=== PATIENT | male | born 1930 | race Caucasian/White ===

== ENCOUNTER 2016-04-28 08:11 | Outpatient (CLI) | payer MEDICARE, OTHER | END 2016-04-28 08:12 | disposition home or self-care (01) | DX: E78.5 Hyperlipidemia, unspecified (principal); N19 Unspecified kidney failure; I25.10 Atherosclerotic heart disease of native coronary artery without angina pectoris ==

== ENCOUNTER 2016-11-30 08:45 | Outpatient (CLI) | payer MEDICARE, OTHER ==
[2016-11-30 14:44] LABS: BUN - BLOOD UREA NITROGEN 21 mg/dL (6-20); CALCIUM 9.4 mg/dL (8.5-10.3); CARBON DIOXIDE - CO2 28 mmol/L (21-32); CHLORIDE 105 mmol/L (101-111); CHOL/HDL RATIO 3.3 (<5.0); CHOLESTEROL 147 mg/dL; CREATININE 1.6 mg/dL (0.6-1.2); GFR - MDRD 41 (>89); GLUCOSE 94 mg/dL (70-100); HDL CHOLESTEROL 44 mg/dL; LDL CHOLESTEROL,DIRECT 85 mg/dL; LDL/HDL RATIO 1.8 (<3.6); POTASSIUM 4.4 mmol/L (3.5-5.0); SODIUM 139 mmol/L (135-145); TRIGLYCERIDES 114 mg/dL; VLDL CHOLESTEROL 23 mg/dL
== END 2016-11-30 08:46 | disposition home or self-care (01) ==
LOC: LAB.WCP 08:45
PROVIDERS: ATTEND Internal Medicine Cardiovascular Disease
DX: I42.9 Cardiomyopathy, unspecified (principal); I10 Essential (primary) hypertension; E78.5 Hyperlipidemia, unspecified; I25.10 Atherosclerotic heart disease of native coronary artery without angina pectoris
CPT/HCPCS: 36415; 80048; 80061; 82550; 84450; 84460

== ENCOUNTER 2017-02-01 09:12 | Observation (INO) | payer MEDICARE, OTHER ==
--- NOTE | 2017-02-01 09:23 | ED Physician Documentation ---
History of Present Illness - Stated complaint Stated Complaint: WEAKNESS - Chief complaint Chief Complaint: General - Additonal information Additional information: hx from pt 86 male near syncope today pt states he had a flu shot 3 days ago generally weak since head cold and chest congestion started yesterday today had 4 min of dec LOC and diaphoresis - no generalized seizure activity noted and no incontinence was breathing pulse not check - known of fast slow present absent etc recovered spont called 911 pt feeling better now states he has a MAGANA - no fall or injury denies CP and palp - just chest congestion no abd pain NVD Review of Systems Constitutional: denies: Fever Cardiac: denies: Chest pain / pressure Respiratory: denies: Dyspnea GI: denies: Abdominal Pain, Nausea, Vomiting Neurologic: reports: Near syncope, Headache. denies: Head injury Endocrine: denies: Easy bruising / bleeding Immunocompromised: denies: Immunocompromised PD PAST MEDICAL HISTORY - Past Medical History Cardiovascular: Hypertension, High cholesterol, Coronary artery disease GI: Cholelithiasis : Kidney stones - Past Surgical History Past Surgical History: Yes General: Cholecystectomy, Colonoscopy Cardiovascular: CABG Neuro: Craniotomy - Present Medications Home Medications: Ambulatory Orders Medication Instructions Recorded Confirmed Atenolol 25 mg PO DAILY 08/01/12 02/01/17 Isosorbide Mononitrate [Imdur] 30 mg PO DAILY 08/01/12 02/01/17 Omeprazole [PriLOSEC] 20 mg PO QDAC 08/01/12 02/01/17 Nitroglycerin [Nitrostat] 0.4 mg SL Q5MIN PRN #0 tablet 11/13/12 02/01/17 Aspirin EC [Ecotrin] 325 mg PO DAILY 02/01/17 02/01/17 Lisinopril [Zestril] 5 mg PO DAILY 02/01/17 02/01/17 Rosuvastatin Calcium [Rosuvastatin 40 mg PO QPM 02/01/17 02/01/17 Calcium] - Allergies Allergies/Adverse Reactions: Allergies Allergy/AdvReac Type Severity Reaction Status Date / Time No Known Drug Allergies Allergy Verified 07/31/12 09:02 - Social History Does the pt smoke?: No Smoking Status: Never smoker Does the pt drink ETOH?: Yes Does the pt have substance abuse?: No PD ED PE NORMAL - Vitals Vital signs reviewed: Yes - General General: Alert and oriented X 3 - HEENT HEENT: PERRL - Neck Neck: Supple, no meningeal sign - Cardiac Cardiac: RRR - Respiratory Respiratory: No respiratory distress, Clear bilaterally - Abdomen Abdomen: Soft, Non tender - Derm Derm: Normal color - Neuro Neuro: Alert and oriented X 3 Eye Opening: Spontaneous Motor: Obeys Commands Verbal: Oriented GCS Score: 15 Results - Vitals Vitals: Vital Signs - 24 hr 02/01/17 02/01/17 02/01/17 09:18 09:26 11:33 Temperature 36.1 C L 36.1 C L Heart Rate 75 75 67 Respiratory 18 18 16 Rate Blood Pressure 143/68 H 143/68 H 127/70 O2 Saturation 97 97 97 02/01/17 12:27 Temperature Heart Rate 68 Respiratory 16 Rate Blood Pressure 114/70 O2 Saturation Oxygen O2 Source Room air - EKG (time done) 0932 Rate: Rate (enter#) Rhythm: NSR (66) [place]: Normal Intervals: 1st degree AVB, Prolonged QT (< 1/2 R-R) Ischemia: Non specific changes - Labs Labs: Laboratory Tests 02/01/17 02/01/17 02/01/17 09:40 09:40 09:40 WBC 10.9 H RBC 4.70 Hgb 14.5 Hct 42.5 MCV 90.5 MCH 30.9 MCHC 34.1 RDW 13.3 Plt Count 215 MPV 7.6 Neut # 7.4 H Lymph # 2.3 Gregg # 1.0 Eos # 0.1 Baso # 0.0 Absolute Nucleated RBC 0.00 Nucleated RBC % 0.0 Sodium 138 Potassium 4.2 Chloride 102 Carbon Dioxide 27 Anion Gap 9.0 BUN 23 H Creatinine 1.6 H Estimated GFR (MDRD) 41 L Glucose 114 H Calcium 9.3 Troponin I < 0.04 Urine Color Urine Clarity Urine pH Ur Specific [place] Urine Protein Urine Glucose (UA) Urine Ketones Urine Occult Blood Urine Nitrite Urine Bilirubin Urine Urobilinogen Ur Leukocyte Esterase Ur Microscopic Review Urine Culture Comments 02/01/17 11:00 WBC RBC Hgb Hct MCV MCH MCHC RDW Plt Count MPV Neut # Lymph # Gregg # Eos # Baso # Absolute Nucleated RBC Nucleated RBC % Sodium Potassium Chloride Carbon Dioxide Anion Gap BUN Creatinine Estimated GFR (MDRD) Glucose Calcium Troponin I Urine Color YELLOW Urine Clarity CLEAR Urine pH 6.0 Ur Specific [place] 1.025 Urine Protein NEGATIVE Urine Glucose (UA) NEGATIVE Urine Ketones NEGATIVE Urine Occult Blood NEGATIVE Urine Nitrite NEGATIVE Urine Bilirubin NEGATIVE Urine Urobilinogen 0.2 (NORMAL) Ur Leukocyte Esterase NEGATIVE Ur Microscopic Review NOT INDICATED Urine Culture Comments NOT INDICATED - Rads (name of study) CTH Radiology: See rad report (no ICH, mucocel or polyp in sinus similar to 2008) CXR Radiology: See rad report (bibasilar atelectasis) PD MEDICAL DECISION MAKING - ED course ED course: syncope vs seizure will admit to tele echo and if neg refer to neuro for further eval spoke to hospitalist at noon Departure - Departure Disposition: ED Place in Observation Clinical Impression: Prolonged QT interval, Renal insufficiency Syncope Qualifiers: Syncope type: unspecified Qualified Code(s): R55 - Syncope and collapse Condition: Good Discharge Date/Time: 02/01/17 13:17 NIHSS - Time Time: 09:15 - Level of Consciousness Level of consciousness: (0) Alert, Keenly responsive LOC Questions: (0) Answers both Q's correct LOC Commands: (0) Performs both correctly - Gaze Best Gaze: (0) Normal - Visual Visual: (0) No loss - Facial Palsy Facial Palsy: (0) Normal, symmetrical movement - Motor Arms (both separate) Motor Arm (right): (0) No drift Motor Arm (left): (0) No drift - Motor Legs (both separate) Motor Leg (right): (0) No drift Motor Leg (left): (0) No drift - Limb Ataxia Limb Ataxia: (0) Absent - Sensory Sensory: (0) Normal - Best Language Best Language: (0) No aphasia - Dysarthria Dysarthria: (0) Normal - Extinction and Inattention (formally neg Extinction and inattention: (0) No abnormality - Total Score/Results Total Score/Result: 0
[2017-02-01 09:45] LABS: BASOPHILS % (AUTO) 0.3 %; EOSINOPHILS # (AUTO) 0.1 10^3/uL (0.0-0.7); EOSINOPHILS % (AUTO) 1.3 %; HCT - HEMATOCRIT 42.5 % (42.0-52.0); HGB - HEMOGLOBIN 14.5 g/dL (14.0-18.0); LYMPHOCYTES # (AUTO) 2.3 10^3/uL (1.5-3.5); LYMPHOCYTES % (AUTO) 21.4 %; MEAN CORPUSCULAR HEMOGLOBIN 30.9 pg (27.0-31.0); MEAN CORPUSCULAR HGB CONC 34.1 g/dL (32.0-36.0); MEAN CORPUSCULAR VOLUME 90.5 fL (80.0-94.0); MEAN PLATELET VOLUME 7.6 fL (7.4-11.4); MONOCYTES % (AUTO) 9.4 %; NEUTROPHILS # (AUTO) 7.4 10^3/uL (1.5-6.6); NEUTROPHILS % (AUTO) 67.6 %; RED CELL DISTRIBUTION WIDTH 13.3 % (12.0-15.0); UNCORRECTED WHITE BLOOD COUNT 10.9 x10^3/uL; WHITE BLOOD COUNT 10.9 x10^3/uL (4.8-10.8)
[2017-02-01 09:56] LABS: CALCIUM 9.3 mg/dL (8.5-10.3); CREATININE 1.6 mg/dL (0.6-1.2); POTASSIUM 4.2 mmol/L (3.5-5.0)
--- NOTE | 2017-02-01 10:09 | CT Preliminary Report ---
Exam: CT HEAD W/O IMPRESSION: 1. Generalized age-related cortical atrophic changes. 2. No intracranial hemorrhage. 3. Elongated opacification of frontal sinus appears similar to prior CT 10/03/2007. Question mucosal retention cyst or polyp. Mucocele not excluded. [facility] SITE ID: [id number]
--- NOTE | 2017-02-01 10:12 | XRAY Preliminary Report ---
Exam: XR CHEST 2 VIEW PA/LAT IMPRESSION: 1. Poor inspiration with mild bibasilar atelectasis. 2. No consolidation evident. [facility] S[id number]
--- NOTE | 2017-02-01 10:12 | CT Report ---
EXAM: CT HEAD EXAM DATE: 02/01/2017 09:52 AM. CLINICAL HISTORY: Headache, near syncope. History of remote subdural hematoma. COMPARISON: Head CT 10/03/2007. TECHNIQUE: Multiaxial CT images were obtained from the foramen magnum to the vertex. IV contrast: Non e. Reformats: Coronal. In accordance with CT protocol optimization, one or more of the following dose reduction techniques w ere utilized for this exam: automated exposure control, adjustment of mA and/or KV based on patient s ize, or use of iterative reconstructive technique. FINDINGS: Parenchyma: No intraparenchymal hemorrhage. No evidence of mass, midline shift, or CT findings of acu te infarction. Owens-white differentiation is distinct. Extraaxial Spaces: Normal for age. No subdural or epidural collections identified. Ventricles: The ventricles and cortical sulci are enlarged, consistent with age-related tissue loss. Sinuses and orbits: Mastoid air cells are clear. Small left maxillary antral mucosal retention cyst o r polyp. Elongated opacification of frontal sinus appears similar to prior CT 10/03/2007. Question mucosal ret ention cyst or polyp. Mucocele not excluded. Bones: Interval right frontal duyen hole. No depressed calvarial fracture. Other: Diffuse chronic microangiopathic white matter changes are evident. Atherosclerotic arterial ca lcifications. IMPRESSION: 1. Generalized age-related cortical atrophic changes. 2. No intracranial hemorrhage. 3. Elongated opacification of frontal sinus appears similar to prior CT 10/03/2007. Question mucosal retention cyst or polyp. Mucocele not excluded. [facility] Referring Provider Line: [phone] SITE ID: [id number]
--- NOTE | 2017-02-01 10:15 | XRAY Report ---
EXAM: CHEST RADIOGRAPHY EXAM DATE: 02/01/2017 10:00 AM. CLINICAL HISTORY: Cough for one day. COMPARISON: Chest x-ray 07/04/2015. TECHNIQUE: 2 views. FINDINGS: Lungs/Pleura: No focal consolidation evident. No pleural effusion. No pneumothorax. Diminished lung v olumes. Probable calcified lateral right upper lobe granuloma. Mediastinum: Prior CABG. Other: Prior sternotomy. Gallbladder fossa surgical clips. IMPRESSION: 1. Poor inspiration with mild bibasilar atelectasis. 2. No consolidation evident. [facility] Referring Provider Line: [phone] SITE ID: [id number]
[2017-02-01 11:09] LABS: BILIRUBIN,URINE NEGATIVE (NEGATIVE)
[2017-02-01 11:16] LABS: UA CHARGE (STRIP ONLY) YES; UR CULTURE IF IND NOT INDICATED
[2017-02-01] MEDS ORDERED: SODIUM CHLORIDE FLUSH 0.9% 10 ML SYRINGE IVP PRN (12:31)
[2017-02-01] MEDS: SODIUM CHLORIDE FLUSH 0.9% 10 ML SYRINGE IVP SCH ×2 (15:08→22:05)
[2017-02-01] MEDS ORDERED: NITROGLYCERIN SL 0.4 MG TABLET SL PRN (16:33)
--- NOTE | 2017-02-01 17:28 | Ultrasound Preliminary Report ---
Exam: US CAROTID DOPPLER COMPLETE IMPRESSION: 1. 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 2. No hemodynamically significant stenosis of the right internal carotid artery. Validated velocity measurements with angiographic measurements and velocity criteria are extrapolated from diameter data as defined by the Society of Radiologists in Ultrasound Consensus Conference Radi ology 2003; 229;340-346. [facility] SITE ID: [id number]
--- NOTE | 2017-02-01 17:43 | Ultrasound Report ---
EXAM: CAROTID DOPPLER ULTRASOUND EXAM DATE: 02/01/2017 03:38 p.m. CLINICAL HISTORY: Syncope and collapse. COMPARISON: None. TECHNIQUE: Real-time sonographic vascular imaging was performed by the process design chemical engineer through the caroti d arterial system with a linear transducer utilizing color-flow, Doppler flow and spectral analysis. Multiple medical device sales representative static images were saved for review. FINDINGS: The bilateral carotid and vertebral arteries are patent with antegrade flow. There is bilat eral moderate calcified plaque. There are elevated velocities in the left carotid bulb with an elevat ed internal to common carotid ratio of 2.4. RIGHT: RCCA Prox: PSV 80 cm/sec. RCCA Dist: PSV 77 cm/sec, EDV 15 cm/sec. RECA: PSV 207 cm/sec. R Bulb: PSV 82 cm/sec, EDV 21 cm/sec, ICA/CCA ratio 1.0. DEREK Prox: PSV 104 cm/sec, EDV 27 cm/sec, ICA/CCA ratio 1.3. DEREK Mid: PSV 96 cm/sec, EDV 23 cm/sec, ICA/CCA ratio 1.2. DEREK Dist: PSV 87 cm/sec, EDV 25 cm/sec, ICA/CCA ratio 1.1. RVA: PSV 68 cm/sec. RVA flow direction: Antegrade. LEFT: LCCA Prox: PSV 104 cm/sec. LCCA Dist: PSV 85 cm/sec, EDV 22 cm/sec. LECA: PSV 260 cm/sec. L Bulb: PSV 207 cm/sec, EDV 36 cm/sec, ICA/CCA ratio 2.4, degree of stenosis 50-69%. LICA Prox: PSV 135 cm/sec, EDV 19 cm/sec, ICA/CCA ratio 1.5. LICA Mid: PSV 108 cm/sec, EDV 24 cm/sec, ICA/CCA ratio 1.2. LICA Dist: PSV 97 cm/sec, EDV 25 cm/sec, ICA/CCA ratio 1.1. LVA: PSV 42 cm/sec. LVA flow direction: Antegrade. Other: None. IMPRESSION: 1. 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 2. No hemodynamically significant stenosis of the right internal carotid artery. Validated velocity measurements with angiographic measurements and velocity criteria are extrapolated from diameter data as defined by the Society of Radiologists in Ultrasound Consensus Conference Radi ology 2003; 229;340-346. [facility] Referring Provider Line: [phone] SITE ID: [id number]
--- NOTE | 2017-02-01 18:04 | HISTORY & PHYSICAL EXAMINATION ---
Chief Complaint - Chief Complaint Chief Complaint: snycope History of Present Illness - Admitted From Admitted From:: ED - History Obtained From Records Reviewed: yes History obtained from: patient, and , Jazzy Exam Limitations: none - History of Present Illness HPI Comment/Other: Chriss Godoy is a pleasant 86-year old male with history of status post CABG ~ 15 years ago, CAD, nocturia, craniotomy for a subdural hematoma, HTN, and hyperlipidemia, who came to the ED today after a syncopal episode. Patient notes that he received a Flu shot 3 days ago, and shortly after became sick with upper respiratory symptoms including a sore throat, runny nose, generalized weakness, and coughing likely for post-nasal drip. He has not been sleeping well due to the coughing. Patient was found sitting in a chair by his and it appeared that he lost consciousness with diaphoresis, and began to have diffuse tremors. The episode lasted "a few minutes", when the patient's called 911. The patient awoke and asked why she was calling. The patient admits to not having any recollection of the events. Patient denies chest pain, shortness of breath, N/V, dizziness or worsening cough, but admits to ongoing headaches which is chronic. He will be admitted to the hospitalist service in observation for a cardiac work up, telemetry monitoring, orthostatic blood pressures, echocardiogram, carotid US and labs. History - Past Medical History Cardiovascular: reports: Hypertension, High cholesterol, Coronary artery disease Respiratory: reports: None Neuro: reports: Headache/migraine, Other (status post craniotomy after a subdural hematoma.) Endocrine/Autoimmune: reports: None GI: reports: Cholelithiasis : reports: Nocturia, Kidney stones HEENT: reports: None, Chronic sinusitis Psych: reports: None Musculoskeletal: reports: None MRSA Hx?: No - Past Surgical History General: reports: Cholecystectomy, Colonoscopy Cardiovascular: reports: CABG Neuro: reports: Craniotomy HEENT: reports: Cataracts - Family & Social History Family History: Mother: Cancer, Father: [place], Brother: Alive and Well Living arrangement: At home Living Situation: With spouse/s.o. - Substance History Use: Uses substance without health or social issues: NONE Abuse: Recurrent use of substance despite neg consequences: NONE Dependence: Experiences withdrawal or developed tolerances: NONE - POLST Patient has POLST: No POLST Status: Full Code Meds/Allgy - Home Medications Home Medications: Ambulatory Orders Medication Instructions Recorded Confirmed Isosorbide Mononitrate [Imdur] 30 mg PO DAILY 08/01/12 02/01/17 Omeprazole [PriLOSEC] 20 mg PO QDAC 08/01/12 02/01/17 Nitroglycerin [Nitrostat] 0.4 mg SL Q5MIN PRN #0 tablet 11/13/12 02/01/17 Aspirin EC [Ecotrin] 325 mg PO DAILY 02/01/17 02/01/17 Lisinopril [Zestril] 5 mg PO DAILY 02/01/17 02/01/17 Rosuvastatin Calcium 40 mg PO QPM 02/01/17 02/01/17 - Allergies Allergies/Adverse Reactions: Allergies Allergy/AdvReac Type Severity Reaction Status Date / Time No Known Drug Allergies Allergy Verified 07/31/12 09:02 Review of Systems - Constitutional Constitutional: reports: Weakness - Eyes Eyes: reports: Corrective lenses - Ears, Nose & Throat Ears, Nose & Throat: reports: Nasal discharge, Nasal congestion, Postnasal drainage, Sore throat - Cardiovascular Cariovascular: reports: Lightheadedness, Syncope - Respiratory Respiratory: reports: Cough - Genitourinary Genitourinary: reports: Nocturia - Neurological Neurological: reports: General weakness, Headache, Pre-existing deficit (very mild, slow to respond at times, forgetful) Exam - Vital Signs Vital Signs: Vital Signs x48h Temp Pulse Resp BP Pulse Ox 02/01/17 16:47 36.5 C 64 18 117/67 98 02/01/17 13:34 132/58 H 02/01/17 13:00 36.5 C 67 18 132/58 H 99 - Physical Exam General Appearance: positive: No acute distress, Alert Eyes Bilateral: positive: Normal inspection, PERRL ENT: positive: ENT inspection nml, No signs of dehydration, Pharyngeal erythema (mild, without swelling), Other (nasal sinus tenderness) Respiratory: positive: Chest non-tender, No respiratory distress, Breath sounds nml Cardiovascular: positive: Irregularly irregular, Systolic murmur Peripheral Pulses: positive: 2+ Abdomen: positive: Non-tender, No organomegaly, Nml bowel sounds, No distention Back: positive: Nml inspection Skin: positive: Color nml, No rash, Warm, Dry Extremities: positive: Non-tender, Full ROM, Nml appearance, No pedal edema Neurologic/Psychiatric: positive: Oriented x3 (forgetful), CN's nml (2-12), Motor nml, Sensation nml, Mood/affect nml, Weakness Reflexes: Bicep (R): 4+, Bicep (L): 4+ Conclusion/Plan - Lab Results Lab results reviewed: Yes Fish Bones: 02/02/17 04:32 02/02/17 04:32 - Diagnostic Imaging Results Diagnostic Imaging Results: positive: Final report reviewed - EKG Results EKG Interpreted Independently: Yes EKG Findings: sinus rhythm Issues/Core Measures - Anticipated LOS Anticipated Stay Length: Less than 2 midnights - Issues Hospital Issues and Management Plan: Syncope: Per admission exam, notes no prior syncopal episodes. Plan: Syncope work up including Echocardiogram, carotid doppler, telemetry monitoring, and orthostatic B/Ps. URI: Patient has had symptoms for about 3 days now and this began the morning after recieving a flu shot. Plan: Patient refused nasal sprays or Tylenol for symptom management. Nocturia: Patient admits to these symptoms for "several years". Plan: Keep urinal at bedside. Will add bladder scans if warranted. Status post CABG: About 15 years ago in [place], [place]. 3-vessel. Patient denies chest pain when asked. Plan: Continue statin and ASA. Status post craniotomy: Per chart review this was performed following a subdural hematoma. Plan: We will plan to monitor mental status and complaints of a worsening headache. Greater than 30 minutes was spent with patient admission exam, patient and counseling. Patient is agreeable to stay over night for telemetry monitoring. - DVT/VTE - Prophylaxis VTE/DVT Device ordered at admit?: No Not Ordered - Medical Reason: Contraindicated VTE/DVT Prophylaxis med ordered at admit?: No Not Ordered - Medical Reason: Not indicated - Stroke - Rehab Assessment Rehab services assessment to be ordered?: No Not Ordered - Medical Reason: Not indicated - AMI - Statin at Admit Aspirin Prescribed on Admit: No Not Ordered - Medical Reason: Not indicated
--- NOTE | 2017-02-01 18:51 | PROVIDER PROGRESS NOTE ---
Hospitalist Cross-cover Note - Cross-Cover Note Cross-Cover Note: This afternoon pt had sinus cherry and junctional cherry at 30 bpm while in bed getting a carotid Doppler. His Atenolol was stopped and CODING DIRECTOR informed pt he may need a permanent pacemaker. About 2 hours later, telemetry showed a 14 beat run of multifocal VT. I saw the pt and examined him. Exam is benign at this time. 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
[2017-02-01 19:12] LABS: INR 1.2 (0.8-1.2); PT - PROTHROMBIN TIME 13.2 secs (9.9-12.6)
[2017-02-01] MEDS: AMIODARONE 360 MG/200 ML 200 ML IV SCH (19:40)
[2017-02-01] MEDS ORDERED: ATORVASTATIN 40 MG TABLET PO SCH (21:00)
[2017-02-02 05:23] LABS: BASOPHILS % (AUTO) 0.2 %; EOSINOPHILS # (AUTO) 0.3 10^3/uL (0.0-0.7); LYMPHOCYTES # (AUTO) 2.3 10^3/uL (1.5-3.5); LYMPHOCYTES % (AUTO) 25.5 %; MEAN CORPUSCULAR HEMOGLOBIN 31.6 pg (27.0-31.0); MEAN CORPUSCULAR HGB CONC 34.2 g/dL (32.0-36.0); MEAN CORPUSCULAR VOLUME 92.6 fL (80.0-94.0); MONOCYTES # (AUTO) 0.9 10^3/uL (0.0-1.0); MONOCYTES % (AUTO) 9.9 %; NEUTROPHILS # (AUTO) 5.6 10^3/uL (1.5-6.6); NEUTROPHILS % (AUTO) 61.4 %; RED BLOOD COUNT 4.43 10^6/uL (4.70-6.10); RED CELL DISTRIBUTION WIDTH 13.3 % (12.0-15.0); UNCORRECTED WHITE BLOOD COUNT 9.2 x10^3/uL; WHITE BLOOD COUNT 9.2 x10^3/uL (4.8-10.8)
[2017-02-02 05:29] LABS: CALCIUM 8.8 mg/dL (8.5-10.3); CREATININE 1.4 mg/dL (0.6-1.2); POTASSIUM 3.8 mmol/L (3.5-5.0)
[2017-02-02] MEDS: SODIUM CHLORIDE FLUSH 0.9% 10 ML SYRINGE IVP SCH (06:06)
[2017-02-02] MEDS: AMIODARONE 360 MG/200 ML 200 ML IV SCH (06:30)
[2017-02-02] MEDS ORDERED: PANTOPRAZOLE 40 MG TABLET PO SCH (07:00)
[2017-02-02] MEDS ORDERED: ISOSORBIDE MONONITRATE ER 30 MG TABLET PO SCH (09:00)
[2017-02-02] MEDS ORDERED: ASPIRIN EC 325 MG TABLET PO SCH (09:00)
[2017-02-02] MEDS ORDERED: LISINOPRIL 5 MG TABLET PO SCH (09:00)
[2017-02-02] MEDS ORDERED: POLYETHYLENE GLYCOL 3350 17 GM PACKET PO SCH (09:00)
--- NOTE | 2017-02-02 14:23 | Discharge Plan ---
Discharge Plan Disposition: 02 Transfer Acute Care Hosp Condition: Stable Diet: Cardiac Instruction Topics: Endarterectomy Carotid, Stenting Carotid Artery Prepare No Smoking: If you smoke, Please STOP! Call for help. Follow-up with: Luis Coello MD [Primary Care Provider] -
[2017-02-02 16:10] VITALS: BP 162/82
--- NOTE | 2017-02-02 19:42 | DISCHARGE SUMMARY ---
DATE OF ADMISSION: 02/01/2017 DATE OF DISCHARGE: 02/02/2017 DISCHARGE/TRANSFER SUMMARY HISTORY OF PRESENT ILLNESS: This is an 86-year-old white male with a history of remote bypass surgery, craniotomy for subdural hematoma in the past, history of hypertension, hyperlipidemia. The patient presented with an episode of syncope that occurred while he was sitting, which the walked in on while he was having and described him as being pale, nonresponsive to verbal stimuli and diaphoretic. As she was calling 911, he awoke and was still diaphoretic and confused as to the event and was transferred to the emergency room. In the emergency room, he was in stable condition and he was then placed in observation for workup of syncope. On telemetry, the patient had several dysrhythmias, requiring transfer to the ICU. He is now being transferred for higher level of care for electrophysiology management, possible implantation of a defibrillator. DISCHARGE DIAGNOSES AND HOSPITAL COURSE 1. Syncope. The patient remembered, on the day after admission, that there was also a syncopal episode 1 year ago with similar circumstances. He was sitting, suddenly "went blank," slumped in the chair, but did not fall out of the chair and was unarousable for approximately 4 minutes. He was not seen in the emergency room or report this to his doctor, as this was during a vacation while out of town. Since being admitted here, there were no further episodes of syncope or any complaints of lightheadedness or dizziness. Orthostatic vital signs were ordered , but not yet able to be done. The patient had normal troponins x3. A resting echo showed a normal LVEF. On telemetry, the patient had evidence of junctional bradycardia during carotid massage that was being inadvertently done during a carotid Doppler exam. At this point, his atenolol was discontinued. Several hours later, the patient had multifocal ventricular tachycardia with a 14-beat run that stopped spontaneously. He was assessed immediately at this time and had no complaints whatsoever, was lying in bed and watching TV. At this point, he was transferred to the ICU and repeat labs were done that showed a normal troponin, normal potassium and magnesium. He was started on iv amiodarone drip without any boluses because of the previous bradycardia. He was maintained on amiodarone 0.5 mg/minute overnight and had no further dysrhythmias or any complaints. I called his established hydrometer finisher, Dr. David Coulter, who agreed that he would need higher level of care and the patient has been accepted for transfer to [facility] under the care of Dr. Rayo, hydrometer finisher in the [facility], for further EP evaluation and management and probable defibrillator implant. This plan was discussed with the patient and his at bedside and he is in agreement with the plan. All questions were answered to their satisfaction. 2. Junctional bradycardia. Management as above. 3. Multifocal ventricular tachycardia. Management as above. 4. History of coronary bypass surgery. There were no anginal complaints during this hospitalization and the patient was maintained on his DANYA-inhibitor, aspirin and statin medication while here. B-rocío was stopped as described above. 5. Peripheral arterial disease. His carotid Doppler exam revealed evidence of moderate unilateral atherosclerosis. Continue with aspirin and statin therapy is advised and further evaluation, followup care in the future. PHYSICAL EXAMINATION AT DISCHARGE VITAL SIGNS: Blood pressure 149/86, pulse 70 in sinus rhythm with first degree block. HEENT: Unremarkable. NECK: Exam shows no JVD in a vertical body position, no carotid bruits. HEART: Sounds are distant. CHEST: Clear. ABDOMEN: Soft. EXTREMITIES: No edema. NEUROLOGIC: He has episodes of poor memory, but no other focal findings. CONDITION AT DISCHARGE: Guarded Labs and Imaging: Reviewed and as above Follow-up: to be determined after hospitalization at [facility] Time required for total transfer/discharge: 45 minutes. JOB #: [id number] EXT JOB #:[id number] [facility]
== END 2017-02-02 17:21 | disposition short-term general hospital (02) ==
LOC: EDUNIT# → ED 09:12 → OBS 12:31 → ICU 19:32
PROVIDERS: ADMIT Nurse Practitioner; ATTEND Internal Medicine
DX: R55 Syncope and collapse (principal); R00.1 Bradycardia, unspecified; I47.2 Ventricular tachycardia; I73.9 Peripheral vascular disease, unspecified; I25.10 Atherosclerotic heart disease of native coronary artery without angina pectoris; Z95.1 Presence of aortocoronary bypass graft; I65.22 Occlusion and stenosis of left carotid artery; I10 Essential (primary) hypertension; E78.5 Hyperlipidemia, unspecified; J06.9 Acute upper respiratory infection, unspecified; R61 Generalized hyperhidrosis; R01.1 Cardiac murmur, unspecified; I44.0 Atrioventricular block, first degree; R25.1 Tremor, unspecified; R51 Headache; Z79.82 Long term (current) use of aspirin; Z79.899 Other long term (current) drug therapy; R35.1 Nocturia; Z98.890 Other specified postprocedural states
CPT/HCPCS: 36415; 70450; 71020; 80048; 81003; 83735; 84484; 85025; 85610; 87150; 93005; 93306; 93880; 99284; A9270; G0378; J0282; 81001; 87086; 99283

== ENCOUNTER 2017-02-01 09:40 | Outpatient (CLI) | payer MEDICARE, OTHER | END 2017-02-01 09:41 | disposition critical access hospital (66) | LOC: EMS 09:40 | PROVIDERS: ATTEND Surgery | DX: R53.1 Weakness (principal) | CPT/HCPCS: A0425; A0429 ==

== ENCOUNTER 2017-12-08 15:34 | Emergency (ER) | payer MEDICARE, OTHER ==
--- NOTE | 2017-12-08 16:14 | ED Physician Documentation ---
PD HPI SYNCOPE - Stated complaint Stated Complaint: LOW BLOOD PRESSURE - Chief complaint Chief Complaint: Neuro - History obtained from History obtained from: Patient, Family - History of Present Illness Witnessed: Witnessed Timing - onset: Today Duration: Seconds Preceding symptoms: Light headed Associated symptoms: No: Headache, Vision changes, Chest pain, Palpitations, Dyspnea, Nausea / vomiting, Abdominal pain Contributing factors: Other (was standing for the approx 30 minutes prior to near syncope) Injury occurred: No: Fell, Head injury, Neck injury, Bit tongue Pain level max: 0 Pain level now: 0 Similar symptoms before: Diagnosis (near syncope) Recently seen: Not recently seen - Additional information Additional information: Patient was standing and felt lightheaded and dizzy. Sat down eyes rolled back in his head started to fall forward, caught by nephew and did not strike head. Feels normal now. Similar episode last january. States atenolol decreased at that time. Sees Dr. Nayak at [facility] for cardiology. Review of Systems Ten Systems: 10 systems reviewed and negative Constitutional: denies: Fever, Chills Ears: denies: Ear pain Nose: denies: Rhinorrhea / runny nose, Congestion Throat: denies: Sore throat Cardiac: denies: Chest pain / pressure Respiratory: denies: Cough, Wheezing GI: denies: Abdominal Pain, Vomiting, Diarrhea : denies: Dysuria Skin: denies: Rash Musculoskeletal: denies: Neck pain, Back pain Neurologic: denies: Focal weakness, Numbness, Headache PD PAST MEDICAL HISTORY - Past Medical History Past Medical History: Yes Cardiovascular: Hypertension, High cholesterol, Coronary artery disease Respiratory: None Endocrine/Autoimmune: None GI: Cholelithiasis : Nocturia, Kidney stones HEENT: None, Chronic sinusitis Psych: None Musculoskeletal: None - Past Surgical History Past Surgical History: Yes General: Cholecystectomy, Colonoscopy Cardiovascular: CABG Neuro: Craniotomy HEENT: Cataracts - Present Medications Home Medications: Ambulatory Orders Medication Instructions Recorded Confirmed Omeprazole [PriLOSEC] 20 mg PO QDAC 08/01/12 02/01/17 Nitroglycerin [Nitrostat] 0.4 mg SL Q5MIN PRN #0 tablet 11/13/12 02/01/17 Aspirin EC [Ecotrin] 325 mg PO DAILY 02/01/17 02/01/17 Lisinopril [Zestril] 5 mg PO DAILY 02/01/17 02/01/17 Atenolol [Tenormin] 1 tab PO DAILY 12/08/17 12/08/17 Rosuvastatin Calcium [Crestor] 1 tab 12/08/17 - Allergies Allergies/Adverse Reactions: Allergies Allergy/AdvReac Type Severity Reaction Status Date / Time No Known Drug Allergies Allergy Verified 12/08/17 15:50 - Social History Does the pt smoke?: No Smoking Status: Never smoker Does the pt drink ETOH?: Yes Does the pt have substance abuse?: No - POLST Patient has POLST: No POLST Status: Full Code PD ED PE NORMAL - Vitals Vital signs reviewed: Yes - General General: Alert and oriented X 3, No acute distress, Well developed/nourished - HEENT HEENT: Atraumatic, PERRL, Other (dry lips) - Neck Neck: Supple, no meningeal sign, No bony TTP, No JVD, No bruit - Cardiac Cardiac: RRR, Strong equal pulses - Respiratory Respiratory: No respiratory distress, Clear bilaterally - Abdomen Abdomen: Soft, Non tender, Non distended - Back Back: No spinal TTP - Derm Derm: Warm and dry - Extremities Extremities: No edema, No calf tenderness / cord - Neuro Neuro: Alert and oriented X 3, critical care registered nurse 2-12 intact, No motor deficit, No sensory deficit, Normal speech Eye Opening: Spontaneous Motor: Obeys Commands Verbal: Oriented GCS Score: 15 - Psych Psych: Normal mood, Normal affect Results - Vitals Vitals: Vital Signs - 24 hr 12/08/17 12/08/17 12/08/17 15:44 17:47 18:05 Temperature 36.4 C L 36.0 C L 36.7 C Heart Rate 75 68 74 Respiratory 16 14 17 Rate Blood Pressure 124/58 L 114/68 116/68 O2 Saturation 98 99 99 Oxygen O2 Source Room air - EKG (time done) 1614 Rate: Rate (enter#) (70) Rhythm: NSR [place]: Normal Intervals: 1st degree AVB QRS: Normal Ischemia: Normal ST segments, Q waves (V1-2) - Labs Labs: Laboratory Tests 12/08/17 12/08/17 12/08/17 16:10 16:10 16:10 WBC 8.6 RBC 4.42 L Hgb 13.9 L Hct 40.6 L MCV 92.0 MCH 31.6 H MCHC 34.3 RDW 12.9 Plt Count 233 MPV 7.8 Neut # (Auto) 7.0 H Lymph # (Auto) 1.1 L [place] # (Auto) 0.5 Eos # (Auto) 0.0 Baso # (Auto) 0.0 Absolute Nucleated RBC 0.00 Nucleated RBC % 0.0 Sodium 134 L Potassium 4.1 Chloride 101 Carbon Dioxide 27 Anion Gap 6.0 BUN 28 H Creatinine 1.9 H Estimated GFR (MDRD) 34 L Glucose 131 H Calcium 9.4 Total Bilirubin 0.5 AST 23 ALT 12 Alkaline Phosphatase 73 Troponin I < 0.04 Total Protein 7.3 Albumin 4.1 Globulin 3.2 Albumin/Globulin Ratio 1.3 Lipase 33 Urine Color Urine Clarity Urine pH Ur Specific [place] Urine Protein Urine Glucose (UA) Urine Ketones Urine Occult Blood Urine Nitrite Urine Bilirubin Urine Urobilinogen Ur Leukocyte Esterase Ur Microscopic Review Urine Culture Comments 12/08/17 16:30 WBC RBC Hgb Hct MCV MCH MCHC RDW Plt Count MPV Neut # (Auto) Lymph # (Auto) [place] # (Auto) Eos # (Auto) Baso # (Auto) Absolute Nucleated RBC Nucleated RBC % Sodium Potassium Chloride Carbon Dioxide Anion Gap BUN Creatinine Estimated GFR (MDRD) Glucose Calcium Total Bilirubin AST ALT Alkaline Phosphatase Troponin I Total Protein Albumin Globulin Albumin/Globulin Ratio Lipase Urine Color YELLOW Urine Clarity CLEAR Urine pH 5.5 Ur Specific [place] 1.010 Urine Protein NEGATIVE Urine Glucose (UA) NEGATIVE Urine Ketones NEGATIVE Urine Occult Blood NEGATIVE Urine Nitrite NEGATIVE Urine Bilirubin NEGATIVE Urine Urobilinogen 0.2 (NORMAL) Ur Leukocyte Esterase NEGATIVE Ur Microscopic Review NOT INDICATED Urine Culture Comments NOT INDICATED - Rads (name of study) cxr Radiology: Prelim report reviewed, EMP read contemporaneously, See rad report (No acute abnormality) PD MEDICAL DECISION MAKING - ED course Complexity details: reviewed results, re-evaluated patient, considered differential, d/w patient, d/w family ED course: Patient is an 87-year-old male who had been standing for prolonged period of time when he felt lightheaded dizzy and had a near syncopal event. Did not strike his head. No neck or back pain. No chest pain. No palpitations. Similar event last January, had a full neurological and cardiac evaluation at that time with no cause found. He does not want to stay in the hospital today. Feels better after IV fluids. We will have him follow-up closely with his doctor for further evaluation and care. Patient and family counseled regarding signs and symptoms for which I believe and urgent re-evaluation would be necessary. Patient with good understanding of and agreement to plan and is comfortable going home at this time This document was made in part using voice recognition software. While efforts are made to proofread this document, sound alike and grammatical errors may occu r. - Sepsis Event Vital Signs: Vital Signs - 24 hr 12/08/17 12/08/17 12/08/17 15:44 17:47 18:05 Temperature 36.4 C L 36.0 C L 36.7 C Heart Rate 75 68 74 Respiratory 16 14 17 Rate Blood Pressure 124/58 L 114/68 116/68 O2 Saturation 98 99 99 Oxygen O2 Source Room air Departure - Departure Disposition: 01 Home, Self Care Clinical Impression: Near syncope, Dehydration Condition: Good Instructions: ED Dehydration, ED Near Syncope Vasovagal Follow-Up: Luis Coello MD [Primary Care Provider] - Within 1 week Comments: Return if you worsen. Drink plenty of fluids at home. Your tests are normal today. Discharge Date/Time: 12/08/17 18:21
[2017-12-08 16:21] LABS: BASOPHILS % (AUTO) 0.3 %; EOSINOPHILS % (AUTO) 0.5 %; HGB - HEMOGLOBIN 13.9 g/dL (14.0-18.0); LYMPHOCYTES # (AUTO) 1.1 10^3/uL (1.5-3.5); LYMPHOCYTES % (AUTO) 12.5 %; MEAN CORPUSCULAR HEMOGLOBIN 31.6 pg (27.0-31.0); MEAN CORPUSCULAR HGB CONC 34.3 g/dL (32.0-36.0); MEAN PLATELET VOLUME 7.8 fL (7.4-11.4); MONOCYTES # (AUTO) 0.5 10^3/uL (0.0-1.0); MONOCYTES % (AUTO) 5.4 %; NEUTROPHILS % (AUTO) 81.3 %; PLT - PLATELET COUNT 233 10^3/uL (130-450); RED BLOOD COUNT 4.42 10^6/uL (4.70-6.10); RED CELL DISTRIBUTION WIDTH 12.9 % (12.0-15.0); WHITE BLOOD COUNT 8.6 x10^3/uL (4.8-10.8)
[2017-12-08 16:32] LABS: ALBUMIN 4.1 g/dL (3.2-5.5); ALBUMIN/GLOBULIN RATIO 1.3 (1.0-2.2); BILIRUBIN,TOTAL 0.5 mg/dL (0.2-1.0); CALCIUM 9.4 mg/dL (8.5-10.3); CREATININE 1.9 mg/dL (0.6-1.2); TOTAL PROTEIN 7.3 g/dL (6.7-8.2)
--- NOTE | 2017-12-08 16:38 | XRAY Report ---
Reason: chest pain Procedure Date: 12/08/2017 Accession Number: [id number] / [id number] Procedure: XR - Chest 1 View X-Ray CPT Code: 41049 FULL RESULT: EXAM: CHEST RADIOGRAPHY EXAM DATE: 12/08/2017 04:18 PM. CLINICAL HISTORY: Chest pain. COMPARISON: CHEST 2 VIEW PA/LAT 02/01/2017. TECHNIQUE: 1 view. FINDINGS: Lungs/Pleura: No focal opacities evident. No pleural effusion. No pneumothorax. Mediastinum: Previous sternotomy and mediastinal surgery noted. Heart size is normal. Mild calcification and tortuosity of thoracic aorta noted. Other: None. IMPRESSION: Negative for an acute cardiopulmonary abnormality. RADIA
[2017-12-08] MEDS ORDERED: SODIUM CHLORIDE 0.9% 500 ML IV ONE (16:42)
[2017-12-08 16:48] LABS: BILIRUBIN,URINE NEGATIVE (NEGATIVE); GLUCOSE, URINE (UA) NEGATIVE (NEGATIVE); KETONES,URINE (UA) NEGATIVE (NEGATIVE); LEUKOCYTE ESTERASE, URINE NEGATIVE (NEGATIVE); NITRITE,URINE NEGATIVE (NEGATIVE); OCCULT BLOOD,URINE NEGATIVE (NEGATIVE); PH,URINE 5.5 PH (5.0-7.5); PROTEIN,URINE NEGATIVE (NEGATIVE); UROBILINOGEN,URINE 0.2 (NORMAL) E.U./dL (NORMAL)
[2017-12-08 16:51] LABS: CLARITY,URINE CLEAR (CLEAR)
[2017-12-08 18:06] VITALS: BP 116/68
== END 2017-12-08 18:21 | disposition home or self-care (01) ==
LOC: ED 15:34
DX: E86.0 Dehydration (principal); R55 Syncope and collapse; I10 Essential (primary) hypertension; Z79.82 Long term (current) use of aspirin; I44.0 Atrioventricular block, first degree; R94.31 Abnormal electrocardiogram [ECG] [EKG]
CPT/HCPCS: 36415; 71045; 80053; 81001; 81003; 83690; 84484; 85025; 87086; 93005; 99284

== ENCOUNTER 2018-02-06 13:50 | Outpatient (CLI) | payer MEDICARE, OTHER ==
[2018-02-06 19:05] LABS: CALCIUM 8.7 mg/dL (8.5-10.3); CREATININE 1.4 mg/dL (0.6-1.2)
== END 2018-02-06 13:51 | disposition home or self-care (01) ==
LOC: LAB.WCP 13:50
PROVIDERS: ATTEND Family Medicine
DX: N18.3 Chronic kidney disease, stage 3 (moderate) (principal)
CPT/HCPCS: 36415; 80048

== ENCOUNTER 2018-06-21 09:13 | Emergency (ER) | payer MEDICARE, OTHER ==
[2018-06-21 09:21] VITALS: BP 109/53
--- NOTE | 2018-06-21 10:45 | ED Physician Documentation ---
PD HPI URI - Stated complaint Stated Complaint: CONGESTED AND COUGH - Chief complaint Chief Complaint: Heent - History obtained from History obtained from: Patient, Family - History of Present Illness Timing - onset: How many weeks ago (1) Timing duration: Weeks (1) Timing details: Gradual onset, Still present Associated symptoms: Nasal congestion, Rhinorrhea, Productive cough, Chest pain. No: Fever, Chills, Ear pain Contributing factors: Sick contact Improves by: Rest, Medication Similar symptoms before: Has not had sx before Recently seen: Not recently seen - Additional information Additional information: Previously well 87-year-old male with history of coronary artery disease has developed a cough and congestion over the past week. He is having wracking coughs and he is developed some soreness to his chest with this. He states that he is coughing up some light yellow phlegm and he does not feel short of breath. He states the worst part of this for him is when he lays down at night he cannot stop coughing Review of Systems Constitutional: denies: Fever Eyes: denies: Decreased vision Ears: denies: Ear pain Nose: reports: Rhinorrhea / runny nose, Congestion Throat: denies: Sore throat Cardiac: reports: Chest pain / pressure. denies: Palpitations, Pedal edema, Calf pain Respiratory: reports: Cough. denies: Dyspnea GI: denies: Vomiting PD PAST MEDICAL HISTORY - Past Medical History Past Medical History: Yes Cardiovascular: Hypertension, High cholesterol, Coronary artery disease Respiratory: None Endocrine/Autoimmune: None GI: Cholelithiasis : Nocturia, Kidney stones HEENT: None, Chronic sinusitis Psych: None Musculoskeletal: None - Past Surgical History Past Surgical History: Yes General: Cholecystectomy, Colonoscopy Cardiovascular: CABG Neuro: Craniotomy HEENT: Cataracts - Present Medications Home Medications: Ambulatory Orders Medication Instructions Recorded Confirmed Omeprazole [PriLOSEC] 20 mg PO QDAC 08/01/12 06/21/18 Nitroglycerin [Nitrostat] 0.4 mg SL Q5MIN PRN #0 tablet 11/13/12 06/21/18 Aspirin EC [Ecotrin] 81 mg PO DAILY 02/01/17 02/01/17 Lisinopril [Zestril] 5 mg PO DAILY 02/01/17 06/21/18 Atenolol [Tenormin] 1 tab PO DAILY 12/08/17 06/21/18 Rosuvastatin Calcium [Crestor] 1 tab PO DAILY 12/08/17 06/21/18 Amox/Clav 875/125 [Augmentin] 1 each PO Q12H #20 tablet 06/21/18 Benzonatate [Tessalon Perle] 100 - 200 mg PO TID PRN #30 capsule 06/21/18 Isosorbide Mononitrate ER [Imdur] 30 mg PO DAILY 06/21/18 06/21/18 - Allergies Allergies/Adverse Reactions: Allergies Allergy/AdvReac Type Severity Reaction Status Date / Time No Known Drug Allergies Allergy Verified 06/21/18 09:21 - Social History Does the pt smoke?: No Smoking Status: Never smoker Does the pt drink ETOH?: Yes Does the pt have substance abuse?: No - Immunizations Immunizations are current?: Yes - POLST Patient has POLST: No POLST Status: Full Code PD ED PE NORMAL - Vitals Vital signs reviewed: Yes (normal ) - General General: Alert and oriented X 3, No acute distress, Well developed/nourished - HEENT HEENT: Atraumatic, PERRL, EOMI, Pharynx benign, Other (hearing aids bilaterally are removed and the TM's are inflamed bilaterally worse on the right with rounding of the umbo. ) - Neck Neck: Supple, no meningeal sign, No bony TTP - Cardiac Cardiac: RRR, No murmur - Respiratory Respiratory: No respiratory distress, Clear bilaterally - Abdomen Abdomen: Soft, Non tender - Back Back: No CVA TTP, No spinal TTP - Derm Derm: Normal color, Warm and dry, No rash - Extremities Extremities: No deformity, No edema - Neuro Neuro: Alert and oriented X 3, onsite case manager 2-12 intact, No motor deficit, No sensory deficit, Normal speech Eye Opening: Spontaneous Motor: Obeys Commands Verbal: Oriented GCS Score: 15 - Psych Psych: Normal mood, Normal affect Results - Vitals Vitals: Vital Signs - 24 hr 06/21/18 09:19 Temperature 36.1 C L Heart Rate 68 Respiratory 14 Rate Blood Pressure 109/53 L O2 Saturation 95 Oxygen O2 Source Room air PD MEDICAL DECISION MAKING - ED course Complexity details: considered differential, d/w patient, d/w family ED course: 87-year-old male with cough and congestion has bilateral otitis on examination he is administered dexamethasone 10 mg orally we will start him on some antibiotic and provide some Tessalon for his cough. Departure - Departure Disposition: 01 Home, Self Care Clinical Impression: Otitis media Qualifiers: Otitis media type: suppurative Chronicity: acute Laterality: bilateral Recurrence: not specified as recurrent Spontaneous tympanic membrane rupture: without spontaneous rupture Qualified Code(s): H66.003 - Acute suppurative otitis media without spontaneous rupture of ear drum, bilateral Condition: Stable Instructions: ED Otitis Media Acute Adult Follow-Up: Luis Coello MD [Primary Care Provider] - Prescriptions: Amox/Clav 875/125 [Augmentin] 1 each PO Q12H #20 tablet Benzonatate [Tessalon Perle] 100 - 200 mg PO TID PRN #30 capsule PRN Reason: Cough
[2018-06-21] MEDS ORDERED: DEXAMETHASONE 10 MG/ML VIAL PO STA (10:50)
[2018-06-21] MEDS ORDERED: CHERRY SYRUP 10 ML UDC PO ONE (10:59)
== END 2018-06-21 10:59 | disposition home or self-care (01) ==
LOC: ED 09:13
DX: H66.003 Acute suppurative otitis media without spontaneous rupture of ear drum, bilateral (principal); I10 Essential (primary) hypertension; E78.00 Pure hypercholesterolemia, unspecified; I25.10 Atherosclerotic heart disease of native coronary artery without angina pectoris; Z95.1 Presence of aortocoronary bypass graft; Z79.82 Long term (current) use of aspirin
CPT/HCPCS: 99283; A9270

== ENCOUNTER 2020-12-28 09:05 | Outpatient (CLI) | payer MEDICARE, OTHER ==
[2020-12-28 12:24] LABS: BASOPHILS % (AUTO) 0.2 %; EOSINOPHILS # (AUTO) 0.1 10^3/uL (0.0-0.7); EOSINOPHILS % (AUTO) 1.5 %; HCT - HEMATOCRIT 41.2 % (42.0-52.0); HGB - HEMOGLOBIN 13.4 g/dL (14.0-18.0); LYMPHOCYTES # (AUTO) 3.1 10^3/uL (1.5-3.5); LYMPHOCYTES % (AUTO) 37.6 %; MEAN CORPUSCULAR HEMOGLOBIN 30.9 pg (27.0-31.0); MEAN CORPUSCULAR HGB CONC 32.5 g/dL (32.0-36.0); MEAN CORPUSCULAR VOLUME 95.2 fL (80.0-94.0); MEAN PLATELET VOLUME 10.5 fL (7.4-11.4); MONOCYTES # (AUTO) 0.6 10^3/uL (0.0-1.0); NEUTROPHILS # (AUTO) 4.3 10^3/uL (1.5-6.6); NEUTROPHILS % (AUTO) 53.3 %; PLT - PLATELET COUNT 217 10^3/uL (130-450); RED BLOOD COUNT 4.33 10^6/uL (4.70-6.10); RED CELL DISTRIBUTION WIDTH 12.4 % (12.0-15.0); WHITE BLOOD COUNT 8.1 x10^3/uL (4.8-10.8)
[2020-12-28 13:42] LABS: ALBUMIN 4.4 g/dL (3.2-5.5); ALBUMIN/GLOBULIN RATIO 1.4 (1.0-2.2); ALKALINE PHOSPHATASE 74 IU/L (42-121); ALT ALANINE AMINOTRANSFERASE 10 IU/L (10-60); AST ASPARTATE AMINOTRANSFERASE 18 IU/L (10-42); BILIRUBIN,TOTAL 1.1 mg/dL (0.2-1.0); BUN - BLOOD UREA NITROGEN 25 mg/dL (6-20); CALCIUM 9.6 mg/dL (8.5-10.3); CARBON DIOXIDE - CO2 29 mmol/L (21-32); CHLORIDE 102 mmol/L (101-111); CHOL/HDL RATIO 2.4 (<5.0); CHOLESTEROL 113 mg/dL; CREATININE 1.7 mg/dL (0.6-1.2); GFR - MDRD 38 (>89); GLUCOSE 105 mg/dL (70-100); HDL CHOLESTEROL 48 mg/dL; LDL CHOLESTEROL,CALCULATED 44 mg/dL; LDL/HDL RATIO 0.9 (<3.6); POTASSIUM 4.4 mmol/L (3.5-5.0); SODIUM 140 mmol/L (135-145); TOTAL PROTEIN 7.5 g/dL (6.7-8.2); TRIGLYCERIDES 103 mg/dL; VLDL CHOLESTEROL 21 mg/dL
[2020-12-28 13:43] LABS: THYROID STIMULATING HORMONE 1.24 uIU/mL (0.34-5.60)
== END 2020-12-28 23:59 | disposition home or self-care (01) ==
LOC: LAB.WCP 09:05
PROVIDERS: ATTEND Family Medicine
DX: I25.10 Atherosclerotic heart disease of native coronary artery without angina pectoris (principal); E78.5 Hyperlipidemia, unspecified
CPT/HCPCS: 36415; 80053; 80061; 83721; 84443; 85025

== ENCOUNTER 2021-01-07 18:22 | Emergency (ER) | payer MEDICARE, OTHER ==
--- NOTE | 2021-01-07 18:54 | ED Physician Documentation ---
PD HPI CHEST PAIN - Stated complaint Stated Complaint: CP - Chief complaint Chief Complaint: Cardiac - History obtained from History obtained from: Patient - History of Present Illness Timing - onset: How many weeks ago (several) Timing - duration: Weeks (4) Timing - details: Gradual onset, Constant Pain level max: 1 Pain level now: 1 Quality: Pressure Location: Substernal Radiation: No: Jaw, Neck, Back, Abdominal, Left upper extremity, Right upper extremity Improved by: Nothing Worsened by: No: Exertion, Inspiration, Eating, Movement, Palpation, Position Associated symptoms: Feeling faint / dizzy (Feels lightheaded when standing up quickly). No: Shortness of air, Diaphoresis, Nausea, Vomiting, General Weakness, Palpitations - Additional information Additional information: Patient is an 89-year-old male who has a history of coronary artery disease and CABG several years ago. He states that for the past 3 to 4 weeks he has been having constant chest pressure. This is described as mild in nature. Nonradiating. Nothing makes it better or worse. No change with food, exertion. He states that occasionally when he stands up quickly he feels lightheaded as well. He states that about 4 weeks ago he did fall onto a concrete slab fell backwards and struck his head. He saw his doctor about a week later but no imaging was done. No neck or back pain. No numbness or tingling. No focal neurological deficits. Review of Systems Constitutional: denies: Fever, Chills Ears: denies: Ear pain Nose: denies: Rhinorrhea / runny nose, Congestion Throat: denies: Sore throat Cardiac: denies: Palpitations GI: denies: Abdominal Pain, Nausea, Vomiting, Diarrhea Skin: denies: Rash Musculoskeletal: denies: Neck pain, Back pain Neurologic: denies: Generalized weakness, Focal weakness, Numbness, Confused, LOC PD PAST MEDICAL HISTORY - Past Medical History Cardiovascular: Hypertension, High cholesterol, Coronary artery disease Respiratory: None Endocrine/Autoimmune: None GI: Cholelithiasis : Nocturia, Kidney stones HEENT: None, Chronic sinusitis Psych: None Musculoskeletal: None - Past Surgical History Past Surgical History: Yes General: Cholecystectomy, Colonoscopy Cardiovascular: CABG Neuro: Craniotomy HEENT: Cataracts - Present Medications Home Medications: Ambulatory Orders Medication Instructions Recorded Confirmed Omeprazole [PriLOSEC] 20 mg PO QDAC 08/01/12 06/21/18 Nitroglycerin [Nitrostat] 0.4 mg SL Q5MIN PRN #0 tablet 11/13/12 06/21/18 Aspirin EC [Ecotrin] 81 mg PO DAILY 02/01/17 02/01/17 lisinopriL [Zestril] 5 mg PO DAILY 02/01/17 06/21/18 Rosuvastatin Calcium [Crestor] 1 tab PO DAILY 12/08/17 06/21/18 atenoloL [Tenormin] 1 tab PO DAILY 12/08/17 06/21/18 Amox/Clav 875/125 [Augmentin] 1 each PO Q12H #20 tablet 06/21/18 Benzonatate [Tessalon Perle] 100 - 200 mg PO TID PRN #30 capsule 06/21/18 Isosorbide Mononitrate ER [Imdur] 30 mg PO DAILY 06/21/18 06/21/18 - Allergies Allergies/Adverse Reactions: Allergies Allergy/AdvReac Type Severity Reaction Status Date / Time No Known Drug Allergies Allergy Verified 06/21/18 09:21 - Social History Does the pt smoke?: No Smoking Status: Never smoker Does the pt drink ETOH?: Yes Does the pt have substance abuse?: No - Immunizations Immunizations are current?: Yes - POLST Patient has POLST: No POLST Status: Full Code PD ED PE NORMAL - Vitals Vital signs reviewed: Yes - General General: Alert and oriented X 3, No acute distress - HEENT HEENT: Atraumatic, PERRL, EOMI, Ears normal, Moist mucous membranes - Neck Neck: Supple, no meningeal sign, No bony TTP - Cardiac Cardiac: RRR, Strong equal pulses - Respiratory Respiratory: No respiratory distress, Clear bilaterally - Abdomen Abdomen: Soft, Non tender, Non distended - Back Back: No spinal TTP - Derm Derm: Warm and dry - Extremities Extremities: No edema, No calf tenderness / cord - Neuro Neuro: Alert and oriented X 3, stable cleaner 2-12 intact, No motor deficit, No sensory deficit, Normal speech Eye Opening: Spontaneous Motor: Obeys Commands Verbal: Oriented GCS Score: 15 - Psych Psych: Normal mood, Normal affect - Free text exam Free text exam: Ambulates with a normal gait without any assistive devices in the emergency department Results - Vitals Vitals: Vital Signs - 24 hr 10/14/21 10/14/21 10/14/21 18:28 18:46 20:33 Temperature 36.3 C L Heart Rate 74 70 60 Respiratory 16 13 18 Rate Blood Pressure 144/118 H 145/66 H 145/73 H O2 Saturation 94 98 97 Oxygen O2 Source Room air - EKG (time done) 1831 Rate: Rate (enter#) (67) Rhythm: NSR [place]: Normal Intervals: Prolonged MA QRS: Normal Ischemia: Non specific changes - Labs Labs: Laboratory Tests 01/07/21 01/07/21 01/07/21 18:52 18:52 18:52 WBC 7.9 RBC 4.12 L Hgb 13.0 L Hct 38.8 L MCV 94.2 H MCH 31.6 H MCHC 33.5 RDW 12.0 Plt Count 202 MPV 9.8 Neut # (Auto) 5.1 Lymph # (Auto) 2.1 [place] # (Auto) 0.6 Eos # (Auto) 0.1 Baso # (Auto) 0.0 Absolute Nucleated RBC 0.00 Nucleated RBC % 0.0 Sodium 136 Potassium 3.8 Chloride 102 Carbon Dioxide 25 Anion Gap 9.0 BUN 23 H Creatinine 1.6 H Estimated GFR (MDRD) 41 L Glucose 137 H Calcium 9.2 Total Bilirubin 1.0 AST 18 ALT 12 Alkaline Phosphatase 78 Troponin I High Sens 3.8 Total Protein 7.4 Albumin 4.3 Globulin 3.1 Albumin/Globulin Ratio 1.4 Lipase 36 - Rads (name of study) CT head Radiology: Final report received, EMP read contemporaneously, See rad report (no acute abnormality) cxr Radiology: Final report received, EMP read contemporaneously, See rad report (no acute abnormality) PD MEDICAL DECISION MAKING - ED course Complexity details: reviewed results, re-evaluated patient, considered differential (No ST elevation [place], no aortic dissection, no PE, no tension pneumothorax, no aortic aneurysm), d/w patient ED course: No acute findings on head CT or cardiac testing. No evidence of PE, TN. No evidence of intracranial hemorrhage. Possible mild concussion, normal neurological exam here. Patient's feels better after being evaluated in the emergency department. We will have him follow-up with his doctor for further care. Patient counseled regarding signs and symptoms for which I believe and urgent re-evaluation would be necessary. Patient with good understanding of and agreement to plan and is comfortable going home at this time This document was made in part using voice recognition software. While efforts are made to proofread this document, sound alike and grammatical errors may occur. Departure - Departure Disposition: 01 Home, Self Care Clinical Impression: Chest pain Qualifiers: Chest pain type: unspecified Qualified Code(s): R07.9 - Chest pain, unspecified Closed head injury Qualifiers: Encounter type: initial encounter Qualified Code(s): S09.90XA - Unspecified injury of head, initial encounter Condition: Good Instructions: ED Chest Pain Atypical Unkn Cause, ED Head Injury Closed Follow-Up: Alexis Pascal DO [Primary Care Provider] - Within 1 week Comments: Your testing is normal tonight. Please follow-up with your doctor for further care. Your head CT, EKG, chest x-ray and cardiac testing did not show any acute abnormalities tonight. Discharge Date/Time: 01/07/21 20:59
[2021-01-07 19:02] LABS: BASOPHILS % (AUTO) 0.3 %; EOSINOPHILS # (AUTO) 0.1 10^3/uL (0.0-0.7); HCT - HEMATOCRIT 38.8 % (42.0-52.0); LYMPHOCYTES # (AUTO) 2.1 10^3/uL (1.5-3.5); LYMPHOCYTES % (AUTO) 26.9 %; MEAN CORPUSCULAR HEMOGLOBIN 31.6 pg (27.0-31.0); MEAN CORPUSCULAR HGB CONC 33.5 g/dL (32.0-36.0); MEAN CORPUSCULAR VOLUME 94.2 fL (80.0-94.0); MEAN PLATELET VOLUME 9.8 fL (7.4-11.4); MONOCYTES # (AUTO) 0.6 10^3/uL (0.0-1.0); MONOCYTES % (AUTO) 7.2 %; NEUTROPHILS # (AUTO) 5.1 10^3/uL (1.5-6.6); NEUTROPHILS % (AUTO) 64.3 %; PLT - PLATELET COUNT 202 10^3/uL (130-450); RED BLOOD COUNT 4.12 10^6/uL (4.70-6.10); WHITE BLOOD COUNT 7.9 x10^3/uL (4.8-10.8)
[2021-01-07 19:15] LABS: ALBUMIN 4.3 g/dL (3.2-5.5); ALBUMIN/GLOBULIN RATIO 1.4 (1.0-2.2); CALCIUM 9.2 mg/dL (8.5-10.3); CREATININE 1.6 mg/dL (0.6-1.2); POTASSIUM 3.8 mmol/L (3.5-5.0); TOTAL PROTEIN 7.4 g/dL (6.7-8.2)
--- NOTE | 2021-01-07 19:52 | XRAY Report ---
PROCEDURE: Chest 1 View X-Ray INDICATIONS: Chest Pain TECHNIQUE: One view of the chest was acquired. COMPARISON: 12/08/2017 FINDINGS: Slightly kyphotic patient position. Surgical changes and devices: Median sternotomy and CABG changes.. Lungs and pleura: Lungs demonstrate mild prominence of the central vascular markings and diffuse thic kening of the interstitium. Mediastinum: Mediastinal contours appear normal. Heart size is normal. Bones and chest wall: No suspicious bony lesions. Overlying soft tissues appear unremarkable. IMPRESSION: 1. Slight increase in central vascular prominence and interstitial thickening compared to the prior s tudy. 2. Stable heart size with surgical changes of prior CABG. Reviewed by: Chanelle Ng MD on 01/07/2021 7:51 PM PDT Approved by: Chanelle Ng MD on 01/07/2021 7:51 PM PDT Station ID: [id number]
[2021-01-07 20:38] VITALS: BP 145/73
--- NOTE | 2021-01-07 20:45 | CT Report ---
PROCEDURE: HEAD WO INDICATIONS: fall 4 weeks ago, persistent MAGANA, dizzy TECHNIQUE: Noncontrast 4.5 mm thick angled axial sections acquired from the foramen magnum to the vertex. For r adiation dose reduction, the following was used: automated exposure control, adjustment of mA and/or kV according to patient size. COMPARISON: 02/01/2017 FINDINGS: Image quality: Excellent. CSF spaces: Basal cisterns are patent. No extra-axial fluid collections. Ventricles are normal in size and shape. Brain: No midline shift. No intracranial masses or hemorrhage. Mild cerebral cortical volume loss appropriate for age. Owens-white matter interface is normal. Skull and face: Right frontal duyen hole near the vertex secondary to remote intervention. Calvarium and visualized facial bones are otherwise intact, without suspicious lesions. Sinuses: Opacification of the frontal sinuses, seen previously but worse on the current study. Other sinuses and mastoids are normally aerated. IMPRESSION: 1. No CT evidence of acute intracranial process. 2. Age-appropriate, stable exam with evidence of remote right frontal subdural drainage. Reviewed by: Chanelle Ng MD on 01/07/2021 8:43 PM PDT Approved by: Chanelle Ng MD on 01/07/2021 8:43 PM PDT Station ID: [id number]
== END 2021-01-07 20:59 | disposition home or self-care (01) ==
LOC: ED 18:22
DX: R07.89 Other chest pain (principal); S09.90XA Unspecified injury of head, initial encounter; W19.XXXA Unspecified fall, initial encounter; I44.0 Atrioventricular block, first degree; I25.10 Atherosclerotic heart disease of native coronary artery without angina pectoris; Z95.1 Presence of aortocoronary bypass graft; I10 Essential (primary) hypertension; Z79.82 Long term (current) use of aspirin
CPT/HCPCS: 36415; 80053; 83690; 84484; 85025; 93005; 99284

== ENCOUNTER 2022-04-07 08:25 | Outpatient (CLI) | payer MEDICARE, OTHER ==
[2022-04-07 12:08] LABS: BASOPHILS % (AUTO) 0.1 %; EOSINOPHILS # (AUTO) 0.1 10^3/uL (0.0-0.7); EOSINOPHILS % (AUTO) 1.7 %; HCT - HEMATOCRIT 39.6 % (42.0-52.0); HGB - HEMOGLOBIN 13.1 g/dL (14.0-18.0); LYMPHOCYTES % (AUTO) 39.5 %; MEAN CORPUSCULAR HEMOGLOBIN 30.9 pg (27.0-31.0); MEAN CORPUSCULAR HGB CONC 33.1 g/dL (32.0-36.0); MEAN CORPUSCULAR VOLUME 93.4 fL (80.0-94.0); MEAN PLATELET VOLUME 10.4 fL (7.4-11.4); MONOCYTES # (AUTO) 0.6 10^3/uL (0.0-1.0); MONOCYTES % (AUTO) 8.1 %; NEUTROPHILS # (AUTO) 3.9 10^3/uL (1.5-6.6); NEUTROPHILS % (AUTO) 50.5 %; PLT - PLATELET COUNT 205 10^3/uL (130-450); RED BLOOD COUNT 4.24 10^6/uL (4.70-6.10); RED CELL DISTRIBUTION WIDTH 12.4 % (12.0-15.0); WHITE BLOOD COUNT 7.7 x10^3/uL (4.8-10.8)
[2022-04-07 12:26] LABS: THYROID STIMULATING HORMONE 1.51 uIU/mL (0.34-5.60)
[2022-04-07 12:33] LABS: ALBUMIN 4.1 g/dL (3.2-5.5); ALBUMIN/GLOBULIN RATIO 1.2 (1.0-2.2); ALKALINE PHOSPHATASE 67 IU/L (42-121); ALT ALANINE AMINOTRANSFERASE 10 IU/L (10-60); AST ASPARTATE AMINOTRANSFERASE 21 IU/L (10-42); BILIRUBIN,TOTAL 0.8 mg/dL (0.2-1.0); BUN - BLOOD UREA NITROGEN 21 mg/dL (6-20); CALCIUM 9.5 mg/dL (8.5-10.3); CARBON DIOXIDE - CO2 29 mmol/L (21-32); CHLORIDE 105 mmol/L (101-111); CHOL/HDL RATIO 2.7 (<5.0); CHOLESTEROL 120 mg/dL; CREATININE 1.7 mg/dL (0.6-1.2); GFR - MDRD 38 (>89); GLUCOSE 103 mg/dL (70-100); HDL CHOLESTEROL 45 mg/dL; LDL CHOLESTEROL,CALCULATED 56 mg/dL; LDL/HDL RATIO 1.2 (<3.6); POTASSIUM 4.3 mmol/L (3.5-5.0); SODIUM 141 mmol/L (135-145); TOTAL PROTEIN 7.4 g/dL (6.7-8.2); TRIGLYCERIDES 93 mg/dL; VLDL CHOLESTEROL 19 mg/dL
== END 2022-04-07 08:26 | disposition home or self-care (01) ==
LOC: LAB.N 08:25
PROVIDERS: ATTEND Nurse Practitioner Family
DX: I10 Essential (primary) hypertension (principal); E78.5 Hyperlipidemia, unspecified; N40.1 Benign prostatic hyperplasia with lower urinary tract symptoms; N13.8 Other obstructive and reflux uropathy
CPT/HCPCS: 36415; 80053; 80061; 83721; 84153; 84443; 85025

== ENCOUNTER 2022-09-05 09:43 | Outpatient (CLI) | payer MEDICARE, OTHER ==
[2022-09-05 12:06] LABS: BASOPHILS % (AUTO) 0.3 %; EOSINOPHILS # (AUTO) 0.1 10^3/uL (0.0-0.7); HCT - HEMATOCRIT 36.5 % (42.0-52.0); HGB - HEMOGLOBIN 12.2 g/dL (14.0-18.0); LYMPHOCYTES # (AUTO) 2.5 10^3/uL (1.5-3.5); LYMPHOCYTES % (AUTO) 35.9 %; MEAN CORPUSCULAR HEMOGLOBIN 31.2 pg (27.0-31.0); MEAN CORPUSCULAR HGB CONC 33.4 g/dL (32.0-36.0); MEAN CORPUSCULAR VOLUME 93.4 fL (80.0-94.0); MEAN PLATELET VOLUME 10.6 fL (7.4-11.4); MONOCYTES # (AUTO) 0.5 10^3/uL (0.0-1.0); MONOCYTES % (AUTO) 7.2 %; NEUTROPHILS # (AUTO) 3.8 10^3/uL (1.5-6.6); NEUTROPHILS % (AUTO) 54.5 %; PLT - PLATELET COUNT 176 10^3/uL (130-450); RED BLOOD COUNT 3.91 10^6/uL (4.70-6.10); RED CELL DISTRIBUTION WIDTH 12.5 % (12.0-15.0); WHITE BLOOD COUNT 7.1 x10^3/uL (4.8-10.8)
[2022-09-05 12:38] LABS: ALBUMIN 3.9 g/dL (3.2-5.5); ALBUMIN/GLOBULIN RATIO 1.3 (1.0-2.2); BILIRUBIN,TOTAL 0.8 mg/dL (0.2-1.0); CREATININE 1.5 mg/dL (0.6-1.2); TOTAL PROTEIN 6.9 g/dL (6.7-8.2)
== END 2022-09-05 09:44 | disposition home or self-care (01) ==
LOC: LAB.N 09:43
PROVIDERS: ATTEND Nurse Practitioner Family
DX: I12.9 Hypertensive chronic kidney disease with stage 1 through stage 4 chronic kidney disease, or unspecified chronic kidney disease (principal); N18.30 Chronic kidney disease, stage 3 unspecified
CPT/HCPCS: 36415; 80053; 85025